=== PATIENT | female | born 1995 | race Caucasian/White ===

== ENCOUNTER 2018-01-29 19:45 | Emergency (ER) | payer OTHER, MEDICAID, SELFPAY ==
--- NOTE | 2018-01-29 19:48 | ED_ITS ---
HPI - Extremity Injury (Upper) <Sarah Harrison PA-C - Last Filed: 01/29/18 21:09> General Chief Complaint: Extremity Injury, Upper Stated Complaint: RIGHT WRIST INJURY Time Seen by Provider: 01/29/18 19:47 Source: patient Mode of arrival: ambulatory Limitations: no limitations History of Present Illness HPI narrative: This healthy 22-year-old comes in due to right wrist pain and swelling. She states that it got slammed in a heavy car console last night. She denies any cuts, no metal pieces however this was bruised, swollen and painful today. 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 It is not weak, but hard to move the wrist sideways and after working for while she noted some tingling in the pinky and ring fingers. She denies any pain in the hand or up into the forearm. She denies any other injuries or problems today. She denies any possibility of stating she practices safe sex and has menses currently. Related Data Home Medications Medication Instructions Recorded Confirmed No Known Home Medications 01/29/18 01/29/18 Allergies Allergy/AdvReac Type Severity Reaction Status Date / Time No Known Drug Allergies Allergy Verified 01/29/18 19:56 Review of Systems <NICCI Catherine Last Filed: 01/29/18 21:09> Review of Systems All systems reviewed & are unremarkable except as noted in HPI and below Exam <Sarah Harrison PA-C - Last Filed: 01/29/18 21:09> Narrative Exam Narrative: GENERAL APPEARANCE: Patient sitting comfortably, in no distress. LUNGS: Clear to auscultation bilaterally. HEART: Rate and rhythm regular without murmur, normal S1 and S2, no S3 or S4. MUSCULOSKELETAL: Moderate right medial wrist effusion. The medial wrist is tender to touch throughout. There is no tenderness or effusion over the right hand, fingers, forearm or elbow. She has full range of motion throughout all of these areas except slight reduction with medial and lateral deviation of the wrist. Right hand stock sorter strength is intact NEUROVASCULAR: Right hand fingers are warm and pink, 2+ radial and ulnar pulses , sensation grossly intact DERM: Patches of ecchymoses noted along the medial border of the right wrist MDM - Extremity Injury (Upper) <Sarah Harrison PA-C - Last Filed: 01/29/18 21:09> Imaging Data extremity: Radiologist's impression: View Report History Print [address] [address] XRay Report Signed Patient: Jojo Avalos MR#: [id number] : 1995 Acct:[id number] Age/Sex: 22 / F Date of Service: 01/29/18 Loc: ED Accession Number: [id number] Procedure: XR wrist RT min 3V Ordering Provider: Sarah Harrison P.A-C PROCEDURE: XR WRIST RT MIN 3V INDICATIONS: contusion, pain, swelling(medial) TECHNIQUE: 3 views of the wrist were acquired. COMPARISON: [facility], , WRIST MINIMUM 3 VIEWS RIGHT, 11/24/2007, 20:17. FINDINGS: Bones: No fractures or dislocations. No suspicious bony lesions. Scaphoid view: Not requested Soft tissues: No suspicious soft tissue calcifications. IMPRESSION: No fracture. No osseous lesion. If there are persistent symptoms or clinical suspicion for pathology, then repeat radiographs or advanced imaging (CT, MRI or bone scan) should be considered for further evaluation. Dictated by: Flores Posey MD, PhD on 01/29/2018 at 20:18 Approved by: Flores Posey MD, PhD on 01/29/2018 at 20:18 Discharge Plan Departure Patient Disposition: Home, Self-Care Clinical Impression: Muscle strain of right wrist, Contusion of right wrist Discharge Date/Time: 01/29/18 20:40 Interventions: ED Discharge Assessment Last Done: 01/29/18 20:44 Instructions: DI for Wrist Sprain Activity Restrictions/Additional Instructions: Return if you have acutely worsening symptoms, and as we talked about this may need repeat x-rays if not better in about a week. You should wear the wrist splint we have given you 10/04. Use ibuprofen every 8 hr or Aleve every 12 hr for pain and swelling. Avoid repetitive movement with your wrist (you should do light duty at work until this is better close). Typically sprains and strains can take a month or 2 to fully resolve. Prescriptions: No Action No Known Home Medications RF: 0 Stand Alone Forms: Work/School Restrictions <Adriane Cárdenas DO - Last Filed: 01/29/18 23:14> Cosign ED Attending Cosignature Attestation: I was immediately available in the department for consultation. Documentation has been reviewed. I agree with assessment and plan.
[2018-01-29 19:51] VITALS: BP 129/84; PULSE 68; RESP 16; TEMP 36.3; O2SAT 100; BMI 20.7
--- NOTE | 2018-01-29 19:59 | DI.RAD.S_ITS ---
PROCEDURE: XR WRIST RT MIN 3V INDICATIONS: contusion, pain, swelling(medial) TECHNIQUE: 3 views of the wrist were acquired. COMPARISON: [facility], , WRIST MINIMUM 3 VIEWS RIGHT, 11/24/2007, 20:17. FINDINGS: Bones: No fractures or dislocations. No suspicious bony lesions. Scaphoid view: Not requested Soft tissues: No suspicious soft tissue calcifications. IMPRESSION: No fracture. No osseous lesion. If there are persistent symptoms or clinical suspicion for pathology, then repeat radiographs or advanced imaging (CT, MRI or bone scan) should be considered for further evaluation. Dictated by: Flores Posey MD, PhD on 01/29/2018 at 20:18 Approved by: Flores Posey MD, PhD on 01/29/2018 at 20:18
== END 2018-01-29 20:40 | disposition home or self-care (01) ==
PROVIDERS: Emergency Provider Internal Medicine
DX: S66.911A Strain of unspecified muscle, fascia and tendon at wrist and hand level, right hand, initial encounter (principal); S60.211A Contusion of right wrist, initial encounter; W23.0XXA Caught, crushed, jammed, or pinched between moving objects, initial encounter
CPT/HCPCS: 29260; 73110; 99282; 99283

== ENCOUNTER 2018-10-30 14:22 | Emergency (ER) | payer OTHER, SELFPAY ==
[2018-10-30 14:27] VITALS: BP 135/89; PULSE 116; RESP 16; TEMP 37.4; O2SAT 99; BMI 21.2
--- NOTE | 2018-10-30 14:29 | DI.RAD.S_ITS ---
PROCEDURE: XR ELBOW LT MIN 3V INDICATIONS: slipped and fell, now with left elbow pain TECHNIQUE: 3 views of the elbow were acquired. COMPARISON: None. FINDINGS: Bones: No fractures or dislocations. No suspicious bony lesions. Soft tissues: No elbow joint effusion. No suspicious soft tissue calcifications. IMPRESSION: No fracture or dislocation. If clinical symptoms persist, a repeat examination in 7-10 days, or advanced imaging such as CT or MRI is suggested for further evaluation. Dictated by: Yasmine Reece M.D. on 10/30/2018 at 14:51 Approved by: Yasmine Reece M.D. on 10/30/2018 at 14:52
--- NOTE | 2018-10-30 14:55 | ED.UPPEXIN ---
HPI - Extremity Injury (Upper) <TARAH Fernández - Last Filed: 10/30/18 21:54> General Chief Complaint: Extremity Injury, Upper Stated Complaint: LEFT ARM INJURY Time Seen by Provider: 10/30/18 14:28 Source: patient Mode of arrival: ambulatory Limitations: no limitations History of Present Illness HPI narrative: 23-year-old healthy female that is a nonsmoker here for complaint of pain into her left elbow after ground level fall last night. She states she slipped while on a step with her arm in the guard rail or when she slipped. She denies any direct trauma to the elbow itself. She reports increased pain with motion of the left elbow. She denies other injuries. No head injury no loss of consciousness. She is ambulatory into the emergency room. MD complaint: injury to: left and elbow Related Data Home Medications Medication Instructions Recorded Confirmed No Known Home Medications 01/29/18 07/12/18 Allergies Allergy/AdvReac Type Severity Reaction Status Date / Time No Known Drug Allergies Allergy Verified 07/12/18 16:20 Review of Systems <TARAH Fernández - Last Filed: 10/30/18 21:54> Constitutional Denies chills, Denies fever(s), Denies lethargy and Denies weakness Eyes Denies change in vision, Denies eye discharge, Denies irritation and Denies loss of vision ENT Ears, Nose, Mouth, and Throat: Denies change in voice, Denies neck pain and Denies sore throat Cardiovascular Denies chest pain, Denies irregular heart rhythm, Denies lightheadedness, Denies palpitations, Denies dyspnea, Denies dyspnea on exertion and Denies orthopnea Respiratory Denies cough, Denies dyspnea, Denies dyspnea on exertion and Denies wheezing Gastrointestinal Gastrointestinal: Denies abdominal pain, Denies change in bowel habits, Denies diarrhea, Denies nausea and Denies vomiting Genitourinary Denies hematuria, Denies flank pain, Denies urinary incontinence and Denies urinary urgency Musculoskeletal Denies neck pain Comments: Left elbow pain Integumentary/Breasts Denies pruritus, Denies erythema, Denies rash and Denies wounds Neurologic Denies confusion, Denies loss of vision and Denies weakness Psychiatric Denies anxiety, Denies confusion, Denies depression, Denies homicidal ideation and Denies suicidal ideation Endocrine Denies palpitations Hematologic/Lymphatic Denies easy bruising Allergic/Immunologic Denies wheezing PFSH <TARAH Fernández - Last Filed: 10/30/18 21:54> Medical History Healthy adult (Chronic) Social History Smoking Status: Never smoker substance use type: does not use Social History Smoking Status: Never smoker substance use type: does not use Exam <TARAH Fernández - Last Filed: 10/30/18 21:54> Initial Vital Signs Initial Vital Signs: Vital Signs Temperature 99.3 F 10/30/18 14:27 Pulse Rate 116 H 10/30/18 14:27 Respiratory Rate 16 10/30/18 14:27 Blood Pressure 135/89 10/30/18 14:27 Pulse Oximetry 99 10/30/18 14:27 Const General: cooperative and well developed Nutritional Appearance: well nourished Orientation: alert, awake, oriented x3 and not confused [facility] Mouth: oral mucosae normal and moist mucous membranes Eyes Conjunctivae: conjunctivae normal Sclera: sclerae normal Pupils: PERRL EOM: EOM intact bilaterally Resp Effort & Inspection: normal respiratory effort, able to speak in complete sentences, no respiratory distress and no use of accessory muscles Auscultation: clear to auscultation bilaterally, no rales, no rhonchi and no wheezes Cardio Rate: regular rate Rhythm: regular rhythm Heart Sounds: no click, no gallops, no murmurs and no rubs Pulses: normal peripheral pulses Skin General: no rashes or lesions noted, No jaundice and No petechiae Neuro General: alert, oriented x3, gait normal and no focal motor deficits Speech: speech normal Extrem Other: Left elbow with a slight abrasion to cubital fossa. No swelling no ecchymosis. No deformities. Patient with full range of motion to the left elbow. Distal sensation is intact. Distal pulses are intact. Distal range of motion is intact. <Yaya Rosas DO - Last Filed: 10/31/18 18:24> Initial Vital Signs Initial Vital Signs: Vital Signs Temperature 99.3 F 10/30/18 14:27 Pulse Rate 116 H 10/30/18 14:27 Respiratory Rate 16 10/30/18 14:27 Blood Pressure 135/89 10/30/18 14:27 Pulse Oximetry 99 10/30/18 14:27 Course <TARAH Fernández - Last Filed: 10/30/18 21:54> Orders Ordered: ED Orders 10/30/18 14:29 XR elbow LT min 3V Stat Vital Signs - 8 hr 10/30/18 14:27 10/30/18 15:20 Temperature 99.3 F Pulse Rate 116 H 78 Respiratory Rate 16 19 Blood Pressure 135/89 Blood Pressure [Right Arm] 113/76 Pulse Oximetry 99 100 <Yaya Rosas DO - Last Filed: 10/31/18 18:24> Orders Ordered: ED Orders 10/30/18 14:29 XR elbow LT min 3V Stat Vital Signs - 8 hr 10/30/18 14:27 10/30/18 15:20 Temperature 99.3 F Pulse Rate 116 H 78 Respiratory Rate 16 19 Blood Pressure 135/89 Blood Pressure [Right Arm] 113/76 Pulse Oximetry 99 100 MDM - Extremity Injury (Upper) <TARAH Fernández - Last Filed: 10/30/18 21:54> Imaging Data Left elbow : Radiologist's impression: [place] [address] XRay Report Signed Patient: Jojo Avalos [facility]#: [id number] : 1995Acct:[id number] Age/Sex: 23 / FDate of Service: 10/30/18 Loc: ED Accession Number: [id number] Procedure: XR elbow LT min 3V Ordering Provider: Jamie Evans PROCEDURE: XR ELBOW LT MIN 3V INDICATIONS: slipped and fell, now with left elbow pain TECHNIQUE: 3 views of the elbow were acquired. COMPARISON: None. FINDINGS: Bones: No fractures or dislocations. No suspicious bony lesions. Soft tissues: No elbow joint effusion. No suspicious soft tissue calcifications. IMPRESSION: No fracture or dislocation. If clinical symptoms persist, a repeat examination in 7-10 days, or advanced imaging such as CT or MRI is suggested for further evaluation. Dictated by: Yasmine Reece M.D. on 10/30/2018 at 14:51 Approved by: Yasmine Reece M.D. on 10/30/2018 at 14:52 [facility] Narrative Medical decision making narrative: X-ray the left elbow was obtained and was negative for any acute fractures or dislocations. Signs and symptoms presents as sprain to the left elbow. She is placed in a sling for comfort and support. [id number] Tylenol or Motrin as needed for any discomfort. Ice and elevation help with any swelling. Follow up with primary care provider next week for re-evaluation. Recommend MRI if continued pain which does not resolve. For any worsening symptoms return emergency room. Discharge Plan Departure Patient Disposition: Home Clinical Impression: Sprain of elbow, left Qualifiers: Encounter type: initial encounter Qualified Code(s): S53.402A - Unspecified sprain of left elbow, initial encounter Discharge Date/Time: 10/30/18 15:47 Interventions: ED Discharge Assessment Last Done: 10/30/18 15:46 Instructions: DI for Elbow Sprain Activity Restrictions/Additional Instructions: X-ray the left elbow was obtained and was negative for any acute fractures or dislocations. Signs and symptoms presents as sprain to the left elbow. You have been placed in a sling for comfort and support. [id number]-[id number] Tylenol or Motrin as needed for any discomfort. Ice and elevation help with any swelling. Follow up with primary care provider next week for re-evaluation. Recommend MRI if continued pain which does not resolve. For any worsening symptoms return emergency room. Prescriptions: No Action No Known Home Medications RF: 0 Referrals: [facility] [Provider Group] <Yaya Rosas DO - Last Filed: 10/31/18 18:24> Cosign ED Attending Giuseppe Attestation: I was immediately available in the department for consultation. Documentation has been reviewed. I agree with assessment and plan.
--- NOTE | 2018-10-30 15:05 | ED_ITS ---
HPI - Extremity Injury (Upper) <TARAH Fernández - Last Filed: 10/30/18 21:54> General Chief Complaint: Extremity Injury, Upper Stated Complaint: LEFT ARM INJURY Time Seen by Provider: 10/30/18 14:28 Source: patient Mode of arrival: ambulatory Limitations: no limitations History of Present Illness HPI narrative: 23-year-old healthy female that is a nonsmoker here for complaint of pain into her left elbow after ground level fall last night. She states she slipped while on a step with her arm in the guard rail or when she slipped. She denies any direct trauma to the elbow itself. She reports increased pain with motion of the left elbow. She denies other injuries. No head injury no loss of consciousness. She is ambulatory into the emergency room. MD complaint: injury to: left and elbow Related Data Home Medications Medication Instructions Recorded Confirmed No Known Home Medications 01/29/18 07/12/18 Allergies Allergy/AdvReac Type Severity Reaction Status Date / Time No Known Drug Allergies Allergy Verified 07/12/18 16:20 Review of Systems <TARAH Fernández - Last Filed: 10/30/18 21:54> Constitutional Denies chills, Denies fever(s), Denies lethargy and Denies weakness Eyes Denies change in vision, Denies eye discharge, Denies irritation and Denies loss of vision ENT Ears, Nose, Mouth, and Throat: Denies change in voice, Denies neck pain and Denies sore throat Cardiovascular Denies chest pain, Denies irregular heart rhythm, Denies lightheadedness, Denies palpitations, Denies dyspnea, Denies dyspnea on exertion and Denies orthopnea Respiratory Denies cough, Denies dyspnea, Denies dyspnea on exertion and Denies wheezing Gastrointestinal Gastrointestinal: Denies abdominal pain, Denies change in bowel habits, Denies diarrhea, Denies nausea and Denies vomiting Genitourinary Denies hematuria, Denies flank pain, Denies urinary incontinence and Denies urinary urgency Musculoskeletal Denies neck pain Comments: Left elbow pain Integumentary/Breasts Denies pruritus, Denies erythema, Denies rash and Denies wounds Neurologic Denies confusion, Denies loss of vision and Denies weakness Psychiatric Denies anxiety, Denies confusion, Denies depression, Denies homicidal ideation and Denies suicidal ideation Endocrine Denies palpitations Hematologic/Lymphatic Denies easy bruising Allergic/Immunologic Denies wheezing PFSH <TARAH Fernández - Last Filed: 10/30/18 21:54> Medical History Healthy adult (Chronic) Social History Smoking Status: Never smoker substance use type: does not use Social History Smoking Status: Never smoker substance use type: does not use Exam <TARAH Fernández - Last Filed: 10/30/18 21:54> Initial Vital Signs Initial Vital Signs: Vital Signs Temperature 99.3 F 10/30/18 14:27 Pulse Rate 116 H 10/30/18 14:27 Respiratory Rate 16 10/30/18 14:27 Blood Pressure 135/89 10/30/18 14:27 Pulse Oximetry 99 10/30/18 14:27 Const General: cooperative and well developed Nutritional Appearance: well nourished Orientation: alert, awake, oriented x3 and not confused [facility] Mouth: oral mucosae normal and moist mucous membranes Eyes Conjunctivae: conjunctivae normal Sclera: sclerae normal Pupils: PERRL EOM: EOM intact bilaterally Resp Effort & Inspection: normal respiratory effort, able to speak in complete sentences, no respiratory distress and no use of accessory muscles Auscultation: clear to auscultation bilaterally, no rales, no rhonchi and no wheezes Cardio Rate: regular rate Rhythm: regular rhythm Heart Sounds: no click, no gallops, no murmurs and no rubs Pulses: normal peripheral pulses Skin General: no rashes or lesions noted, No jaundice and No petechiae Neuro General: alert, oriented x3, gait normal and no focal motor deficits Speech: speech normal Extrem Other: Left elbow with a slight abrasion to cubital fossa. No swelling no ecchymosis. No deformities. Patient with full range of motion to the left elbow. Distal sensation is intact. Distal pulses are intact. Distal range of motion is intact. <Yaya Rosas DO - Last Filed: 10/31/18 18:24> Initial Vital Signs Initial Vital Signs: Vital Signs Temperature 99.3 F 10/30/18 14:27 Pulse Rate 116 H 10/30/18 14:27 Respiratory Rate 16 10/30/18 14:27 Blood Pressure 135/89 10/30/18 14:27 Pulse Oximetry 99 10/30/18 14:27 Course <TARAH Fernández - Last Filed: 10/30/18 21:54> Orders Ordered: ED Orders 10/30/18 14:29 XR elbow LT min 3V Stat Vital Signs - 8 hr 10/30/18 14:27 10/30/18 15:20 Temperature 99.3 F Pulse Rate 116 H 78 Respiratory Rate 16 19 Blood Pressure 135/89 Blood Pressure [Right Arm] 113/76 Pulse Oximetry 99 100 <Yaya Rosas DO - Last Filed: 10/31/18 18:24> Orders Ordered: ED Orders 10/30/18 14:29 XR elbow LT min 3V Stat Vital Signs - 8 hr 10/30/18 14:27 10/30/18 15:20 Temperature 99.3 F Pulse Rate 116 H 78 Respiratory Rate 16 19 Blood Pressure 135/89 Blood Pressure [Right Arm] 113/76 Pulse Oximetry 99 100 MDM - Extremity Injury (Upper) <TARAH Fernández - Last Filed: 10/30/18 21:54> Imaging Data Left elbow : Radiologist's impression: [place] [address] XRay Report Signed Patient: Jojo Avalos [facility]#: [id number] : 1995Acct:[id number] Age/Sex: 23 / FDate of Service: 10/30/18 Loc: ED Accession Number: [id number] Procedure: XR elbow LT min 3V Ordering Provider: Jamie Evans PROCEDURE: XR ELBOW LT MIN 3V INDICATIONS: slipped and fell, now with left elbow pain TECHNIQUE: 3 views of the elbow were acquired. COMPARISON: None. FINDINGS: Bones: No fractures or dislocations. No suspicious bony lesions. Soft tissues: No elbow joint effusion. No suspicious soft tissue calcifications. IMPRESSION: No fracture or dislocation. If clinical symptoms persist, a repeat examination in 7-10 days, or advanced imaging such as CT or MRI is suggested for further evaluation. Dictated by: Yasmine Reece M.D. on 10/30/2018 at 14:51 Approved by: Yasmine Reece M.D. on 10/30/2018 at 14:52 [facility] Narrative Medical decision making narrative: X-ray the left elbow was obtained and was n egative for any acute fractures or dislocations. Signs and symptoms presents as sprain to the left elbow. She is placed in a sling for comfort and support. Lihp-azk-tulvzsn Tylenol or Motrin as needed for any discomfort. Ice and elevation help with any swelling. Follow up with primary care provider next week for re-evaluation. Recommend MRI if continued pain which does not resolve. For any worsening symptoms return emergency room. Discharge Plan Departure Patient Disposition: Home Clinical Impression: Sprain of elbow, left Qualifiers: Encounter type: initial encounter Qualified Code(s): S53.402A - Unspecified sprain of left elbow, initial encounter Discharge Date/Time: 10/30/18 15:47 Interventions: ED Discharge Assessment Last Done: 10/30/18 15:46 Instructions: DI for Elbow Sprain Activity Restrictions/Additional Instructions: X-ray the left elbow was obtained and was negative for any acute fractures or dislocations. Signs and symptoms presents as sprain to the left elbow. You have been placed in a sling for comfort and support. Cfgg-evh-[id number] Tylenol or Motrin as needed for any discomfort. Ice and elevation help with any swelling. Follow up with primary care provider next week for re-evaluation. Recommend MRI if continued pain which does not resolve. For any worsening symptoms return emergency room. Prescriptions: No Action No Known Home Medications RF: 0 Referrals: [facility] [Provider Group] <Yaya Rosas DO - Last Filed: 10/31/18 18:24> Cosign ED Attending Giuseppe Attestation: I was immediately available in the department for consultation. Documentation has been reviewed. I agree with assessment and plan.
[2018-10-30 15:20] VITALS: BP 113/76; PULSE 78; RESP 19; O2SAT 100
== END 2018-10-30 15:47 | disposition home or self-care (01) ==
PROVIDERS: Emergency Provider Nurse Practitioner Family
DX: S53.402A Unspecified sprain of left elbow, initial encounter (principal); W18.43XA Slipping, tripping and stumbling without falling due to stepping from one level to another, initial encounter
CPT/HCPCS: 73080; 99282; 99283

== ENCOUNTER → 2019-09-16 09:46 | Outpatient (CLI) | payer OTHER, SELFPAY ==
[2019-09-16 10:50] LABS: Add Manual Diff / Slide Review NO; Basophils Absolute Auto 0 /uL (0-100); Basophils Percent Auto 0.6 % (0-2); Eosinophils Absolute Auto 100 /uL (0-450); Eosinophils Percent Auto 1.5 % (2-4); Hematocrit 39.1 % (36-46); Hemoglobin 13.6 g/dL (12.0-16.0); Lymphocytes Absolute Auto 1700 /uL (1100-4500); Lymphocytes Percent Auto 37.2 % (25-40); Mean Corpuscular HGB Conc 34.8 % (30-36); Mean Corpuscular Hemoglobin 30.5 PG (26-34); Mean Corpuscular Volume 87.5 fL (80-100); Monocytes Absolute Auto 300 /uL (0-900); Monocytes Percent Auto 7.8 % (3-14); Neutrophils Absolute Auto 2400 /uL (1500-7000); Neutrophils Percent Auto 52.9 % (50-75); Platelet Count 283 X10^3/uL (150-400); Red Blood Cell Count 4.47 X10^6/uL (4.0-5.2); Red Cell Distribution Width 12.2 % (11.6-14.8); White Blood Cell Count 4.5 X10^3/uL (4.5-11.0)
[2019-09-16 11:44] LABS: Alanine Aminotransferase 15 IU/L (<35); Albumin 5.2 g/dL (3.5-5.0); Albumin Globulin Ratio 1.9 (1.0-2.8); Alkaline Phosphatase 50 U/L (38-126); Aspartate Aminotransferase 24 IU/L (14-36); Bilirubin Total 0.4 mg/dL (0.2-1.3); Blood Urea Nitrogen 15 mg/dL (7-17); Calcium 9.8 mg/dL (8.4-10.2); Carbon Dioxide 26 mmol/L (22-32); Chloride 104 mmol/L (98-107); Estimated Glomerular Filt Rate > 60.0 mL/min (>60); Globulin 2.8 g/dL (1.7-4.1); Glucose 77 mg/dL (70-100); HEMOLYSIS < 15 (0-50); Potassium 3.9 mmol/L (3.4-5.1); Sodium 142 mmol/L (137-145)
[2019-09-16 13:35] LABS: TSH w/ Reflex to FT4 2.37 uIU/mL (0.47-4.68)
== END ==
PROVIDERS: PCP Family Medicine; Visit Provider Family Medicine
DX: L65.9 Nonscarring hair loss, unspecified (principal); R53.83 Other fatigue
CPT/HCPCS: 36415; 80053; 84443; 85025

== ENCOUNTER → 2020-04-13 09:32 | Outpatient (CLI) | payer OTHER, MEDICAID, SELFPAY ==
--- NOTE | 2020-04-13 09:33 | DI.US.S_ITS ---
PROCEDURE: US OB <= 14 WEEKS FETUS INDICATIONS: Initial US for Dating and Viability please OUTSIDE/PRIOR DATING DATA: Last menstrual period (LMP): 02/11/2020. LMP-based estimated date of delivery (JOSÉ MIGUEL): 11/17/2020 . First dating scan (date and location): 04/13/2020 . Estimated date of delivery (JOSÉ MIGUEL) from first dating scan: 11/16/2020 . TECHNIQUE: Real-time scanning was performed of the fetus and maternal pelvic organs, with image documentation. Endovaginal scanning was also performed to better visualize the fetus and maternal ovaries. COMPARISON: None. FINDINGS: Embryo: [place]-rump length measured 2.4 cm corresponding to 9 weeks 0 days. Heart rate measures 189 beats per minute. Measurement variability in dating: +/- 4 weeks by LMP, +/- 7 days by mean sac diameter (use before 6 weeks gestation if crown-rump length not able to be measured), +/- 5 days by crown-rump length (up to 8 weeks 6 days gestation), +/- 7 days by crown-rump length (up to 13 weeks 6 days gestation). Maternal organs: Ovaries within normal limits, with right corpus luteal cyst Subcentimeter myometrial cyst noted.. Limited images through the kidneys demonstrate no hydronephrosis. IMPRESSION: Single living 9 week 0 day intrauterine . Dictated by: Elvis Wall [facility] Interpreted: Melecio Herndon MD on 04/13/2020 at 16:04 Approved by: Melecio Herndon M.D. on 04/13/2020 at 16:51
== END ==
PROVIDERS: PCP Family Medicine; Referring Provider Family Medicine; Visit Provider Family Medicine
DX: Z34.01 Encounter for supervision of normal first pregnancy, first trimester (principal); Z3A.09 9 weeks gestation of pregnancy
CPT/HCPCS: 76801; 76817

== ENCOUNTER → 2020-04-24 10:10 | Outpatient (CLI) | payer OTHER, MEDICAID, SELFPAY ==
[2020-04-24 10:44] LABS: Add Manual Diff / Slide Review NO; Basophils Absolute Auto 0 /uL (0-100); Basophils Percent Auto 0.4 % (0-2); Eosinophils Absolute Auto 100 /uL (0-450); Hematocrit 38.6 % (36-46); Hemoglobin 13.5 g/dL (12.0-16.0); Lymphocytes Absolute Auto 1300 /uL (1100-4500); Lymphocytes Percent Auto 24.8 % (25-40); Mean Corpuscular HGB Conc 34.9 % (30-36); Mean Corpuscular Hemoglobin 30.4 PG (26-34); Mean Corpuscular Volume 87.2 fL (80-100); Monocytes Absolute Auto 300 /uL (0-900); Monocytes Percent Auto 6.5 % (3-14); Neutrophils Absolute Auto 3500 /uL (1500-7000); Neutrophils Percent Auto 67.3 % (50-75); Platelet Count 264 X10^3/uL (150-400); Red Blood Cell Count 4.43 X10^6/uL (4.0-5.2); Red Cell Distribution Width 12.1 % (11.6-14.8); White Blood Cell Count 5.2 X10^3/uL (4.5-11.0)
[2020-04-24 11:14] LABS: Appearance Urine UA CLEAR; Bilirubin Urine UA NEGATIVE (NEGATIVE); Color Urine UA YELLOW; Glucose Urine UA NEGATIVE (Negative); Ketones Urine UA NEGATIVE (NEGATIVE); Leukocyte Esterase Urine UA NEGATIVE (NEGATIVE); Nitrite Urine UA NEGATIVE (Negative); Occult Blood Urine UA NEGATIVE (Negative); Protein Urine UA NEGATIVE (Negative); Specific Gravity Urine UA <=1.005 (1.000-1.035); Urobilinogen Urine UA 0.2 E.U./dL (0.2)
[2020-04-25 04:40] LABS: RPR Screen Non Reactive (Non Reactive)
[2020-04-25 06:36] LABS: Varicella IgG Antibody 321 index (Immune >165)
[2020-04-27 15:25] LABS: Hepatitis B Surface Antigen NEGATIVE s/c (NEGATIVE)
[2020-04-27 15:42] LABS: HIV 1 & 2 Ab/Ag 4th Gen Combo NEGATIVE (NEGATIVE); Hep C Virus Ab w/Reflex Quant NEGATIVE s/c (NEGATIVE)
== END ==
PROVIDERS: PCP Family Medicine; Referring Provider Family Medicine; Visit Provider Family Medicine
DX: Z34.01 Encounter for supervision of normal first pregnancy, first trimester (principal)
CPT/HCPCS: 36415; 80055; 81003; 86787; 86803; 86850; 86900; 86901; 87086; 87389

== ENCOUNTER → 2020-05-23 10:39 | Outpatient (CLI) | payer OTHER, MEDICAID, SELFPAY ==
[2020-05-23 10:50] LABS: Bacteria Urine None Seen
[2020-05-23 11:01] LABS: Appearance Urine UA CLEAR; Bilirubin Urine UA NEGATIVE (NEGATIVE); Color Urine UA YELLOW; Glucose Urine UA NEGATIVE (Negative); Ketones Urine UA NEGATIVE (NEGATIVE); Leukocyte Esterase Urine UA NEGATIVE (NEGATIVE); Nitrite Urine UA NEGATIVE (Negative); Occult Blood Urine UA NEGATIVE (Negative); Protein Urine UA NEGATIVE (Negative); Specific Gravity Urine UA 1.015 (1.000-1.035); Urobilinogen Urine UA 0.2 E.U./dL (0.2)
[2020-05-23 12:00] LABS: RBC Urine 0-1/HPF (0-5/HPF); Squamous Epithelial Cell Urine 5-10 /HPF (0-5/HPF); WBC Urine 0-1/HPF (0-5/HPF)
[2020-05-23 12:01] LABS: Culture Indicated Urine Cult Not Indicated; Other Crystals Urine 3+ Amorphous
== END ==
PROVIDERS: PCP Family Medicine; Referring Provider Family Medicine; Visit Provider Family Medicine
DX: R30.0 Dysuria (principal)
CPT/HCPCS: 81001

== ENCOUNTER → 2020-06-22 11:32 | Outpatient (CLI) | payer OTHER, MEDICAID, SELFPAY ==
[2020-06-25 20:55] LABS: AFP, Serum 66.6 ng/mL (.); Calc Gestational Age Ultrasound (.); Estriol, Free 2.07 ng/mL (.); Inhibin A, Dimeric 167.17 pg/mL (.); Maternal Ethnicity Caucasian (.); Maternal Weight 158 lbs (.); Number of Fetuses No (.); OSBR Risk 1 IN 3501 (.); Results Report (.); Test Results *Screen Negative* (.); hCG, MoM 0.73 (.); hCG, Serum 18191 mIU/mL (.)
== END ==
PROVIDERS: PCP Family Medicine; Referring Provider Family Medicine; Visit Provider Family Medicine
DX: Z34.90 Encounter for supervision of normal pregnancy, unspecified, unspecified trimester (principal); Z3A.18 18 weeks gestation of pregnancy
CPT/HCPCS: 36415; 82105; 82677; 84702; 86336

== ENCOUNTER → 2020-07-03 14:14 | Outpatient (CLI) | payer OTHER, MEDICAID, SELFPAY ==
--- NOTE | 2020-07-03 14:15 | DI.US.S_ITS ---
PROCEDURE: US OB >= 14 WEEKS FETUS INDICATIONS: ANATOMY SCAN OUTSIDE/PRIOR DATING DATA: Last menstrual period (LMP): 02/11/20 LMP-based estimated date of delivery (JOSÉ MIGUEL): 11/17/20 . First dating scan (date and location): 04/13/20, [facility] . Estimated date of delivery (JOSÉ MIGUEL) from first dating scan: 11/16/20 . TECHNIQUE: Real-time scanning was performed of the fetus, with image documentation and biometric measurements. COMPARISON: None. FINDINGS: General: A single living intrauterine gestation is present. Presentation: Vertex. Placenta: Placental position is anterior , without previa. Amniotic fluid index: 14.6 cm, normal range is 5-24 cm. heart rate: 128 beats per minute. Maternal cervical canal: 5.7 cm long. Normal lower limit is 2.5 cm. biometrics: Biparietal diameter: 5.1 cm, 21 weeks 4 days Head circumference: 18.6 cm, 21 weeks 0 days Abdominal circumference: 16.2 cm, 21 weeks 2 days Femur length: 3.5 cm, 21 weeks 1 day Estimated gestational age from initial scan: 20 weeks 4 days Composite gestational age from present scan: 21 weeks 2 days Estimated weight and percentile: 405 g, 78 percentile Measurement variability for biometric dating: +/- 7 days from 14 weeks to 15 weeks 6 days gestation, +/- 10 days from 16 weeks to 21 weeks 6 days gestation, +/- 2 weeks from 22 weeks to 27 weeks 6 days gestation, +/- 3 weeks for 28 weeks gestation or later. weight reference: 4500 g or EFW >90/95% is considered macrosomia or large for gestational age. EFW <10% is small for gestational age. EFW 5% or less is considered intra-uterine growth restriction. Anatomic survey: Neuro: Ventricles are non-dilated at less than 10 mm. Cisterna magna is normal at 3-11 mm. Cerebellum is normal in size and morphology. Nuchal skin fold: Normal at less than 6 mm between 14-21 weeks gestational age. Face: Nose and lips, facial profile are normal. Spine: No evidence for spina bifida. Heart: 4-chambered heart is present, with normal ventricular outflow tracts. Diaphragm: Diaphragm is intact. Stomach: Left-sided stomach is present. Kidneys: No hydronephrosis. Normal is less than 5 mm in 2nd trimester, less than 7 mm in 3rd trimester. Cord: 3-vessel cord has orthotopic insertion. Bladder: Normal in size. Extremities: All 4 extremities identified. IMPRESSION: 1. Living 2nd trimester intrauterine . Current ultrasound age is 4 days greater than established clinical age based on initial ultrasound. 2. Normal 2nd trimester anatomy scan. Dictated by: Abdiel Mcclelland M.D. on 07/03/2020 at 18:14 Approved by: Abdiel Mcclelland M.D. on 07/03/2020 at 18:19
== END ==
PROVIDERS: PCP Family Medicine; Referring Provider Family Medicine; Visit Provider Family Medicine
DX: Z36.89 Encounter for other specified antenatal screening (principal); Z3A.21 21 weeks gestation of pregnancy
CPT/HCPCS: 76811

== ENCOUNTER → 2020-08-28 08:40 | Outpatient (CLI) | payer OTHER, SELFPAY ==
[2020-08-28 10:34] LABS: Hematocrit 36.9 % (36-46); Hemoglobin 12.6 g/dL (12.0-16.0)
[2020-08-28 11:08] LABS: GTT (PREG) 1 Hour PP 50gm Dose 89 mg/dL (76-139)
== END ==
PROVIDERS: PCP Family Medicine; Referring Provider Family Medicine; Visit Provider Family Medicine
DX: Z34.90 Encounter for supervision of normal pregnancy, unspecified, unspecified trimester (principal); Z3A.26 26 weeks gestation of pregnancy
CPT/HCPCS: 36415; 82950; 85014; 85018

== ENCOUNTER → 2020-10-26 15:15 | Outpatient (CLI) | payer OTHER, MEDICAID, SELFPAY ==
[2020-10-27 13:49] LABS: Strep Grp B PCR NEG for Grp B Strep
== END ==
PROVIDERS: PCP Family Medicine; Visit Provider Family Medicine
DX: Z34.90 Encounter for supervision of normal pregnancy, unspecified, unspecified trimester (principal); Z3A.36 36 weeks gestation of pregnancy
CPT/HCPCS: 87653

== ENCOUNTER 2020-11-12 09:03 | Inpatient (IN) | payer OTHER, MEDICAID, SELFPAY ==
--- NOTE | 2020-11-12 13:01 | P.HPOB_ITS ---
OB HPI Date/Time Date of admission: 11/12/20 Date Patient Seen: 11/12/20 Time Patient Seen: 12:30 History of Present Condition Chief complaint: Observation : 1 Para: 0 Estimated Date of Delivery: 11/17/20 Estimated Gestational Age (weeks): 39w2d Narrative: Jojo Avalos is a 25 year old at 39 weeks and 2 days. Patient reports a contractions began last night around 7:30 p.m. but became much more painful sometime after midnight. Contractions at home have been every 2-4 minutes and getting stronger. She has had some bloody discharge and thought some leaking last night but continued leaking. Reports good movement. History of Present care: good care, initiated at week # (10), number of visits (11) and pounds weight gain (41) Dating criteria: LMP confirmed by 1st trimester US Ultrasounds: normal 1st trimester US and normal mid trimester US Obstetrical complications: none Medical complications: none Preadmission Labs Blood type: A (+) positive -: Antibody screen: negative, GBS status: negative, HBsAG: negative, HIV: negative and RPR/VDLR: negative -: Rubella: immune and Varicella: immune HCT: 36.9 HCAB: negative PAP: Normal Quad screen: Normal Urine: Negative 1 hr GTT: 89 Evaluation Evaluation Baseline heart rate: 130 Variability: Moderate (11-25) monitor accelerations: Present monitor decelerations: Absent Contraction Frequency (minutes): 2 Status: Category l Cervical dilation (cm): 2 Cervical effacement (%): 85 station: 0 PFSH Medical History Allergies (~2000) Chronic back pain (~2011) Family history of breast cancer Foot pain (~2017) Hemorrhoid (~2018) Migraines (~2017) Scoliosis (~1995) Surgical History Anesthesia H/O eye surgery (~1997) Family History Mother Breast cancer Hypertension Anxiety Depression Grandfather Cancer Smoker Grandmother Stroke Smoker Aneurysm Sister Eligio-Danlos disease Depression Grandfather Hypertension Smoker Family estrangement Grandmother Hypertension Hyperlipidemia Mental health problem Father No known health problems Family/Other Breast cancer Social History marital status: unmarried,living together household members: significant other pets and animals: Yes (X 1 dog) education level: high school occupational status: employed ([employer] in [facility] ) current occupational exposures/hazards: No special chavo needs: No sexual history: Currently sexually active Smoking Status: Never smoker second hand exposure: No alcohol intake: former (pre- : very rare) substance use type: does not use and marijuana (pre-) during the past year weight has: remained stable Type(s) of exercise: walking Meds Home Medications and Allergies Home Medications Medication Instructions Recorded Confirmed Type cetirizine 10 mg tablet 10 mg PO DAILY #90 tab 08/26/19 11/12/20 Rx prenat.vits,mavis,[id number] 1 tab PO DAILY 04/20/20 11/12/20 History Allergies Allergy/AdvReac Type Severity Reaction Status Date / Time No Known Drug Allergies Allergy Verified 08/31/20 15:44 Review of Systems Review of Systems ROS: Yes All systems reviewed with the patient and are negative except as otherwise documented Exam Vital Signs (past 8 hours): Temperature 36.1? blood pressure 134/82 heart rate 88 Const General: healthy appearing and comfortable HENMT Head: normal to inspection Ears: hearing grossly normal bilaterally Nose: external nose normal Face and sinus: normal facial exam Mouth: oral mucosae normal Eyes General: appearance normal, both eyes and all related structures Neck Neck: normal visual inspection Resp Effort & Inspection: normal respiratory effort Auscultation: clear to auscultation bilaterally Cardio Rate: regular rate Rhythm: regular rhythm Heart Sounds: no murmurs GI Other: Gravid External Female Exam: normal external appearance Manual OB Exam: dilated 2, effaced (85) and station 0 Presentation: vertex Estimated Weight (lbs): 7 Back/Spine/Pelvis Back: normal to inspection Skin General: no rashes or lesions noted Extrem General: normal to inspection and no pedal edema Assessment and Plan Assessment and Plan Assessment and Plan narrative: 25-year-old at 39 weeks and 2 days in labor with regular contractions and cervical change since presentation to the hospital. Admit to center, CBC and type and screen now, COVID swab now GBS negative, no indication for prophylaxis Patient desires natural childbirth Expectant management
[2020-11-12 13:27] LABS: Add Manual Diff / Slide Review NO; Basophils Absolute Auto 0 /uL (0-100); Basophils Percent Auto 0.3 % (0-2); Eosinophils Absolute Auto 0 /uL (0-450); Eosinophils Percent Auto 0.2 % (2-4); Hematocrit 38.9 % (36-46); Hemoglobin 13.2 g/dL (12.0-16.0); Lymphocytes Absolute Auto 1100 /uL (1100-4500); Lymphocytes Percent Auto 13.1 % (25-40); Mean Corpuscular Hemoglobin 29.8 PG (26-34); Mean Corpuscular Volume 87.7 fL (80-100); Monocytes Absolute Auto 600 /uL (0-900); Monocytes Percent Auto 6.6 % (3-14); Neutrophils Absolute Auto 6900 /uL (1500-7000); Neutrophils Percent Auto 79.8 % (50-75); Platelet Count 245 X10^3/uL (150-400); Red Blood Cell Count 4.44 X10^6/uL (4.0-5.2); White Blood Cell Count 8.7 X10^3/uL (4.5-11.0)
[2020-11-12 14:16] VITALS: BP 134/84
[2020-11-12 15:04] LABS: COVID19 -Nasal RAPID Negative (Negative)
--- NOTE | 2020-11-12 17:12 | PM.OBPNLAB ---
Date/Time Date Patient Seen: 11/12/20 Time Patient Seen: 17:12 Pain Control Pain control: tolerating well Comments: Rates pain with contractions 6-7/10 which is tolerable for her. She has had more bloody show. Pelvic Exam Dilation (cm): 3 Effacement (%): 90 station: 0 Amniotic membrane status: Ruptured (AROM light blood tinged fluid) Contractions Contraction frequency (min): 2 Status status: Category l Heart Rate Baseline: 135 Monitor Accelerations: Present Monitor Decelerations: Absent Monitor Variability: Moderate Assessment and Plan Plan: continuous present management Comments: 25 year old at 39+2 weeks with slow cervical change throughout the day but now becoming more painful. AROM with blood tinged fluid. Continue expectant management. Desires natural childbirth.
[2020-11-12] MEDS: OXYTOCIN 10 UNIT/ML VIAL 20 UNIT (19:51)
--- NOTE | 2020-11-12 20:32 | PM.OBPRVD ---
Labor & Delivery Delivery date: 11/12/20 Intrapartal Events: None Delivery augmentation: rupture of membranes Delivery monitor: external FHT Route of delivery: L&D Laceration Description: Vaginal - 1st Degree and Labial (bilateral second degree labial lacerations) Delivery repair: vicryl Estimated blood loss (mL): 100 Anesthesia Type: None Narrative: BRIEF HISTORY: Patient is a 25-year-old at 39 weeks 2 days who gave on 11/12/20 at 19:44. JOSÉ MIGUEL: 11/17/2020 Hospital problems: 39 weeks of STAGE I: Labor Patient presented in active labor after contractions began at home at 12:30 AM. AROM at 17:07 with blood tinged fluid. FHT were category 1 throughout stage 1 and patient used natural methods only for pain control. She was completely dilated at 19:24. Stage 1 18 hours and 54 minutes. STAGE II: Delivery Spontaneous vaginal delivery of a vigorous male occurred at 19:44 after 20 minutes of pushing. was vertex and PATRICIA. Infant was immediately placed on mother's abdomen. Cord was clamped and cut after several minute delay. Apgars were 9 and 9. Stage 2 duration 20 minutes. STAGE III: Placenta/Cord Placenta delivered at 19:48 after active managment and appeared intact with a three vessel cord. Stage 3 duration 4 minutes. Bilateral second degree labial lacerations were repaired in the usual fashion with good hemostasis. A right first degree vaginal laceration was not repaired. Fundus firm below umbilicus after delivery. EBL: 100 mL. Needle and sponge counts were correct. The vagina was inspected and no items were left in situ. Patient was doing well with JT, her and boyfriend at bedside. Baby 1: Infant gender: Male Presentation: vertex Placenta delivery description: Spontaneous Cord Vessel Description: 3 Vessels score (1 min): 9 score (5 min): 9 Plan for aftercare: Routine care
[2020-11-12] MEDS: IBUPROFEN 600 MG TABLET PO (22:29)
[2020-11-12] MEDS: DERMOPLAST SPRAY 20% 60 ML 1 SPRAY TOP (22:30)
[2020-11-13] MEDS: LANOLIN OINT 7 GM 1 APPLIC TOP (09:58)
[2020-11-13] MEDS: DOCUSATE 100 MG CAPSULE PO (09:59)
[2020-11-13] MEDS: IBUPROFEN 600 MG TABLET PO ×2 (09:59→16:15)
[2020-11-13] MEDS: PRENATAL VIT,CALC/IRON/FOLIC 1 TABLET 1 TAB PO (09:59)
--- NOTE | 2020-11-13 13:19 | P.DS_ITS ---
Discharge Providers Provider Date of admission: 11/12/20 09:03 Discharge Date: 11/13/20 Primary care physician: Jacklyn Purdy DO Consults: 11/13/20 20:33 Consult to [employer] Routine Comment: Discharge provider: Jacklyn Purdy DO Summary Hospital Course Date Patient Seen: 11/13/20 Time Patient Seen: 12:30 Diagnoses: Spontaneous vaginal delivery Hospital Course: Patient is a 25 year old G1 now P1 after uncomplicated on 11/12/20 to a vigorous male . Bilateral labial lacerations were repaired with good hemostasis and a first degree vaginal laceration did not require repair. course was notable for several mildly elevated blood pressures though patient was asymptomatic. CBC was normal and CMP remarkable for mildly elevated AST not meeting criteria for pre-eclampsia. Blood pressures would improve to the normal range without intervention. Vaginal bleeding was moderate and pain well- controlled with ibuprofen. Patient was ambulating, eating, voiding and passing flatus. was going very well. No concerns in the . She and her partner were eager to return home and requested early discharge. Advised patient to monitor her BP at home and call if elevated or if she develops symptoms concerning for pre-eclampsia (headache, vison changes, RUQ, edema). She voiced her understanding. Also advised calling for fevers, severe pain or bleeding through more than a pad an hour. She will follow up in clinic for a BP check when she brings in her on 11/16/20 at 3:30 pm. Peripartum Data Delivery Method: Natural Vaginal Laceration Description: Vaginal - 1st Degree and Labial complications: none [place] 1: Gender: Male Disposition of : home Discharge Diagnosis (1) 39 weeks gestation of : Status: Acute (2) Spontaneous vaginal delivery: Status: Acute Status at Discharge Cognitive/behavioral status at discharge: oriented Functional status at discharge: independent ambulation Overall status at discharge: patient is progressing back to baseline Time Spent with Patient Time attestation: Total time spent providing and/or coordinating discharge services: Time spent: Less than 30 minutes Objective Labs Result Diagrams: 11/13/20 17:25 11/13/20 17:25 Labs: Laboratory Results - last 24 hr 11/12/20 11/12/20 11/12/20 11:26 12:45 12:45 WBC 8.7 RBC 4.44 Hgb 13.2 Hct 38.9 MCV 87.7 MCH 29.8 MCHC 34.0 RDW 14.0 Plt Count 245 Neut % (Auto) 79.8 H Lymph % (Auto) 13.1 L [place] % (Auto) 6.6 Eos % (Auto) 0.2 L Baso % (Auto) 0.3 Neut # (Auto) 6900 Lymph # (Auto) 1100 [place] # (Auto) 600 Eos # (Auto) 0 Baso # (Auto) 0 SARS-CoV-2 (PCR) Negative Blood Type A Positive Antibody Screen Negative Exam Vital Signs (past 8 hours): Temperature 97.5? blood pressure 139/86 heart rate 93 Narrative Exam Narrative: General: Awake and alert, no acute distress. HEENT: NCAT, EOMI, moist oral mucosa CV: Regular rate and rhythm, no murmurs, rubs or gallops Lungs: CTAB, no wheezes, rales, or rhonchi Abdomen: Soft, nontender; bowel tones active; uterus firm 1 cm below umbilicus Extremities: Warm, no edema Discharge Plan Discharge Plan Patient Disposition: Home Discharge orders & Medications Prescriptions: New docusate sodium [DOK] 100 mg Capsule 100 mg PO DAILY Qty: 30 RF: 0 ibuprofen 600 mg Tablet 600 mg PO Q6HR PRN (Reason: Pain, Mild (1-3)) Qty: 30 RF: 0 Continued cetirizine [Zyrtec] 10 mg tablet 10 mg PO DAILY Qty: 90 RF: 0 prenat.vits,mavis,vyj-wtxs-lhtko Tablet 1 tab PO DAILY RF: 0 Follow up/Referrals: Jacklyn Purdy DO [Primary Care Provider] - 6 Weeks Visit Report/Discharge Packet Stand Alone Forms: Discharge: Care Visit Report Forms: Patient Portal/API, Stroke Signs & Symptoms Discharge Data Primary Care Provider: Jacklyn Purdy Discharges patient from system. Discharge Date/Time: 11/13/20 19:00
[2020-11-13 17:32] LABS: Add Manual Diff / Slide Review NO; Basophils Absolute Auto 0 /uL (0-100); Basophils Percent Auto 0.4 % (0-2); Eosinophils Absolute Auto 0 /uL (0-450); Eosinophils Percent Auto 0.2 % (2-4); Hematocrit 38.2 % (36-46); Hemoglobin 13.2 g/dL (12.0-16.0); Lymphocytes Absolute Auto 1800 /uL (1100-4500); Mean Corpuscular HGB Conc 34.5 % (30-36); Mean Corpuscular Hemoglobin 30.4 PG (26-34); Mean Corpuscular Volume 88.1 fL (80-100); Monocytes Absolute Auto 800 /uL (0-900); Neutrophils Absolute Auto 8100 /uL (1500-7000); Neutrophils Percent Auto 75.4 % (50-75); Platelet Count 243 X10^3/uL (150-400); Red Blood Cell Count 4.34 X10^6/uL (4.0-5.2); Red Cell Distribution Width 14.3 % (11.6-14.8); White Blood Cell Count 10.8 X10^3/uL (4.5-11.0)
[2020-11-13 17:43] LABS: Alanine Aminotransferase 23 IU/L (<35); Albumin 3.7 g/dL (3.5-5.0); Albumin Globulin Ratio 1.2 (1.0-2.8); Alkaline Phosphatase 213 U/L (38-126); Aspartate Aminotransferase 43 IU/L (14-36); BUN Creatinine Ratio 30.6 (6-22); Bilirubin Total 0.3 mg/dL (0.2-1.3); Blood Urea Nitrogen 22 mg/dL (7-17); Calcium 9.2 mg/dL (8.4-10.2); Carbon Dioxide 23 mmol/L (22-32); Chloride 104 mmol/L (98-107); Estimated Glomerular Filt Rate > 60.0 mL/min (>60); Globulin 3.1 g/dL (1.7-4.1); Glucose 107 mg/dL (70-100); HEMOLYSIS < 15 (0-50); Potassium 3.8 mmol/L (3.4-5.1); Sodium 134 mmol/L (137-145); Total Protein 6.8 g/dL (6.3-8.2)
[2020-11-13 18:11] VITALS: BP 125/83; PULSE 92; RESP 16; TEMP 36.4
== END 2020-11-13 19:00 | disposition home or self-care (01) | DRG 807 ==
PROVIDERS: Admitting Provider Family Medicine; PCP Family Medicine; Referring Provider Family Medicine; Visit Provider Family Medicine
DX: O70.0 First degree perineal laceration during delivery (principal); Z37.0 Single live birth; Z3A.39 39 weeks gestation of pregnancy; Z20.822 Contact with and (suspected) exposure to COVID-19
CPT/HCPCS: 36415; 59050; 59400; 80053; 85025; 86850; 86900; 86901; 87635; C9803; G0379; J2590

== ENCOUNTER → 2022-04-26 17:03 | Outpatient (CLI) | payer OTHER, MEDICAID, SELFPAY ==
[2022-04-26 18:17] LABS: Add Manual Diff / Slide Review NO; Basophils Absolute Auto 0 /uL (0-100); Basophils Percent Auto 0.3 % (0-2); Eosinophils Absolute Auto 100 /uL (0-450); Eosinophils Percent Auto 0.9 % (2-4); Hematocrit 35.4 % (36-46); Hemoglobin 12.4 g/dL (12.0-16.0); Lymphocytes Absolute Auto 1600 /uL (1100-4500); Mean Corpuscular HGB Conc 35.1 % (30-36); Mean Corpuscular Hemoglobin 30.5 PG (26-34); Mean Corpuscular Volume 86.6 fL (80-100); Monocytes Absolute Auto 400 /uL (0-900); Monocytes Percent Auto 4.7 % (3-14); Neutrophils Absolute Auto 5700 /uL (1500-7000); Neutrophils Percent Auto 73.1 % (50-75); Platelet Count 311 X10^3/uL (150-400); Red Blood Cell Count 4.08 X10^6/uL (4.0-5.2); Red Cell Distribution Width 12.6 % (11.6-14.8); White Blood Cell Count 7.8 X10^3/uL (4.5-11.0)
[2022-04-26 18:20] LABS: Appearance Urine UA CLEAR; Bilirubin Urine UA NEGATIVE (NEGATIVE); Color Urine UA YELLOW; Glucose Urine UA NEGATIVE (Negative); Ketones Urine UA NEGATIVE (NEGATIVE); Nitrite Urine UA NEGATIVE (Negative); Occult Blood Urine UA TRACE-LYSED (Negative); Protein Urine UA NEGATIVE (Negative); Specific Gravity Urine UA <=1.005 (1.000-1.035); Urobilinogen Urine UA 0.2 E.U./dL (0.2)
[2022-04-26 18:21] LABS: Leukocyte Esterase Urine UA NEGATIVE (NEGATIVE); pH Urine UA 6.5 (4.5-8.0)
[2022-04-28 03:58] LABS: RPR Screen Non Reactive (Non Reactive)
[2022-04-28 04:22] LABS: Varicella IgG Antibody 304 index (Immune >165)
[2022-04-28 21:29] LABS: Hepatitis B Surface Antigen NEGATIVE s/c (NEGATIVE)
[2022-04-28 21:51] LABS: HIV 1 & 2 Ab/Ag 4th Gen Combo NEGATIVE (NEGATIVE); Hep C Virus Ab w/Reflex Quant NEGATIVE s/c (NEGATIVE)
== END ==
PROVIDERS: PCP Family Medicine; Referring Provider Family Medicine; Visit Provider Family Medicine
DX: Z34.81 Encounter for supervision of other normal pregnancy, first trimester (principal)
CPT/HCPCS: 36415; 80055; 81003; 86787; 86803; 86850; 86900; 86901; 87389

== ENCOUNTER → 2022-05-30 16:36 | Outpatient (CLI) | payer OTHER, MEDICAID, SELFPAY ==
[2022-06-01 20:47] LABS: AFP, Serum 87.2 ng/mL (.); Calc Gestational Age Ultrasound (.); Estriol, Free 1.61 ng/mL (.); Inhibin A, Dimeric 222.02 pg/mL (.); Inhibin A, MoM 1.45 (.); Maternal Ethnicity Caucasian (.); Maternal Weight 158 lbs (.); Number of Fetuses No (.); OSBR Risk 1 IN 901 (.); Results Report (.); Test Results *Screen Negative* (.); hCG, MoM 2.18 (.); hCG, Serum 64531 mIU/mL (.)
== END ==
PROVIDERS: PCP Family Medicine; Referring Provider Family Medicine; Visit Provider Family Medicine
DX: Z34.81 Encounter for supervision of other normal pregnancy, first trimester (principal); Z3A.18 18 weeks gestation of pregnancy
CPT/HCPCS: 36415; 82105; 82677; 84702; 86336

== ENCOUNTER → 2022-06-13 14:10 | Outpatient (CLI) | payer OTHER, MEDICAID, SELFPAY ==
--- NOTE | 2022-06-13 14:11 | DI.US.S_ITS ---
PROCEDURE: US OB >= 14 WEEKS FETUS INDICATIONS: ANATOMY OUTSIDE/PRIOR DATING DATA: Last menstrual period (LMP): 01/23/2022 LMP-based estimated date of delivery (JOSÉ MIGUEL): 10/30/2022. First dating scan (date and location): 06/13/2022. Estimated date of delivery (JOSÉ MIGUEL) from first dating scan: 10/28/2022. Working JOSÉ MIGUEL is 10/30/2022. TECHNIQUE: Real-time scanning was performed of the fetus, with image documentation and biometric measurements. COMPARISON: [facility], , OB >= 14 WEEKS FETUS, 07/03/2020, 14:53. FINDINGS: General: A single living intrauterine gestation is present. Presentation: Transverse. Placenta: Placental position is anterior , without previa. Amniotic fluid index: 10.4 cm, normal range is 5-24 cm. Single deepest vertical pocket is 3.0 cm. heart rate: 144 beats per minute. Maternal cervical canal: 3.7 cm long. Normal lower limit is 2.5 cm. biometrics: Biparietal diameter: 20 weeks Head circumference: 19 weeks 4 days Abdominal circumference: 21 weeks 3 days Femur length: 20 weeks 3 days Clinically estimated gestational age: 20 weeks 1 day Composite gestational age from present scan: 20 weeks 3 days Estimated weight and percentile: 380 g; 80 second percentile Anatomic survey: Neuro: Ventricles are non-dilated at less than 10 mm. Cisterna magna is normal at 3-11 mm. Cerebellum is normal in size and morphology. Nuchal skin fold: Normal at less than 6 mm between 14-21 weeks gestational age. Face: Nose and lips, facial profile are normal. Spine: Suboptimally visualized. Heart: Suboptimally visualized. Diaphragm: Diaphragm is intact. Stomach: Left-sided stomach is present. Kidneys: Suboptimally visualized. Cord: 3-vessel cord has orthotopic insertion. Bladder: Normal in size. Extremities: All 4 extremities identified. IMPRESSION: 1. Single living IUP redemonstrated and interval growth is normal. 2. Limited anatomic survey as above. Follow-up recommended. We strive to produce accurate, complete, and clear reports of imaging services. To assist us in improving patient care, this report was composed using standard report templates and voice recognition software. Therefore, it may contain abnormal punctuation, insertions and/or omissions. Occasional wrong-word or sound-alike substitutions may occur. Though we review the report and make efforts to correct it, we do recommend that the report be read carefully in proper context to recognize any text inaccuracies. Dictated by: Elvis ASCENCIO Interpreted: Edwin Alvarez MD on 06/14/2022 at 16:41 Transcribed by: NANCY on 06/14/2022 at 16:43 Approved by: Edwin Alvarez M.D. on 06/14/2022 at 20:34
== END ==
PROVIDERS: PCP Family Medicine; Referring Provider Family Medicine; Visit Provider Family Medicine
DX: Z3A.20 20 weeks gestation of pregnancy; Z36.89 Encounter for other specified antenatal screening
CPT/HCPCS: 76811

== ENCOUNTER → 2022-06-27 14:52 | Outpatient (CLI) | payer OTHER, MEDICAID, SELFPAY ==
--- NOTE | 2022-06-27 14:53 | DI.US.S_ITS ---
PROCEDURE: US OB FOLLOW UP INDICATIONS: Last US unable to view everything OUTSIDE/PRIOR DATING DATA: Last menstrual period (LMP): 01/23/2022 LMP-based estimated date of delivery (JOSÉ MIGUEL): 10/30/2022 First dating scan (date and location): 06/13/2022. Estimated date of delivery (JOSÉ MIGUEL) from first dating scan: 10/28/2022. The calculations are made using the working JOSÉ MIGUEL of 10/30/2022. TECHNIQUE: Real-time scanning was performed of the fetus, with image documentation. Endovaginal scanning: Not indicated. COMPARISON: None. FINDINGS: A single living intrauterine gestation is present. Presentation: Breech Placenta: Placental position is anterior, without previa. Amniotic fluid index: 14.8 cm, normal range is 5-24 cm. Single deepest vertical pocket is 5.1 cm. heart rate: 153 beats per minute. Maternal cervical canal: 3.1 cm long. Normal lower limit is 2.5 cm. Estimated gestational age from initial scan: 22 weeks, 1 day Evaluation of spine is slightly limited however is grossly within normal limits. Four-chamber heart, outflow tracts and bilateral kidneys are visualized and are within normal limits. IMPRESSION: 1. Single live intrauterine gestation with fetus in breech presentation. heart rate is 153 beats per minute. Normal amount of amniotic fluid. 2. Four-chamber heart, outflow tracts and bilateral kidneys are visualized and are within normal limits. spine is suboptimally seen and is grossly within normal limits. Dictated by: Melecio Herndon M.D. on 06/27/2022 at 17:05 Approved by: Melecio Herndon M.D. on 06/27/2022 at 17:08
== END ==
PROVIDERS: PCP Family Medicine; Referring Provider Family Medicine; Visit Provider Family Medicine
DX: Z36.2 Encounter for other antenatal screening follow-up (principal); Z3A.22 22 weeks gestation of pregnancy
CPT/HCPCS: 76816

== ENCOUNTER → 2022-07-25 11:56 | Outpatient (CLI) | payer OTHER, MEDICAID, SELFPAY ==
[2022-07-25 13:17] LABS: Influenza A - CEPHEID Flu A POSITIVE (NEGATIVE); Influenza B - CEPHEID Flu B NEGATIVE (NEGATIVE)
== END ==
PROVIDERS: PCP Family Medicine; Visit Provider Family Medicine
DX: R68.89 Other general symptoms and signs (principal)
CPT/HCPCS: 87502

== ENCOUNTER → 2022-08-19 15:41 | Outpatient (CLI) | payer OTHER, MEDICAID, SELFPAY ==
[2022-08-19 17:14] LABS: Hematocrit 33.2 % (36-46); Hemoglobin 11.8 g/dL (12.0-16.0)
[2022-08-19 17:30] LABS: GTT (PREG) 1 Hour PP 50gm Dose 124 mg/dL (76-139)
== END ==
PROVIDERS: PCP Family Medicine; Referring Provider Family Medicine; Visit Provider Family Medicine
DX: Z34.92 Encounter for supervision of normal pregnancy, unspecified, second trimester (principal); Z3A.26 26 weeks gestation of pregnancy
CPT/HCPCS: 36415; 82950; 85014; 85018

== ENCOUNTER → 2022-10-04 12:18 | Outpatient (CLI) | payer OTHER, MEDICAID, SELFPAY ==
[2022-10-04 15:42] LABS: Influenza A - CEPHEID Flu A NEGATIVE (NEGATIVE); Influenza B - CEPHEID Flu B NEGATIVE (NEGATIVE)
[2022-10-04 15:43] LABS: COVID-19 CEPHEID 4-PLEX PCR Negative (Negative)
[2022-10-05 11:42] LABS: Strep Grp B PCR NEG for Grp B Strep
== END ==
PROVIDERS: PCP Family Medicine; Visit Provider Family Medicine
DX: Z34.93 Encounter for supervision of normal pregnancy, unspecified, third trimester (principal); Z3A.36 36 weeks gestation of pregnancy; J34.89 Other specified disorders of nose and nasal sinuses; R05.9 Cough, unspecified; R09.81 Nasal congestion
CPT/HCPCS: 0240U; 87653

== ENCOUNTER 2022-10-27 01:57 | Inpatient (IN) | payer OTHER, MEDICAID, SELFPAY ==
[2022-10-27 02:45] LABS: Add Manual Diff / Slide Review NO; Basophils Absolute Auto 0 /uL (0-100); Basophils Percent Auto 0.3 % (0-2); Eosinophils Absolute Auto 0 /uL (0-450); Eosinophils Percent Auto 0.3 % (2-4); Hematocrit 38.5 % (36-46); Hemoglobin 13.2 g/dL (12.0-16.0); Lymphocytes Absolute Auto 1600 /uL (1100-4500); Lymphocytes Percent Auto 16.6 % (25-40); Mean Corpuscular HGB Conc 34.3 % (30-36); Mean Corpuscular Hemoglobin 30.4 PG (26-34); Mean Corpuscular Volume 88.4 fL (80-100); Monocytes Absolute Auto 600 /uL (0-900); Neutrophils Absolute Auto 7400 /uL (1500-7000); Neutrophils Percent Auto 76.8 % (50-75); Platelet Count 245 X10^3/uL (150-400); Red Blood Cell Count 4.35 X10^6/uL (4.0-5.2); Red Cell Distribution Width 14.1 % (11.6-14.8); White Blood Cell Count 9.6 X10^3/uL (4.5-11.0)
[2022-10-27 02:57] VITALS: BP 128/84
--- NOTE | 2022-10-27 03:14 | P.HPOB_ITS ---
OB HPI Date/Time Date of admission: 10/27/22 Date Patient Seen: 10/27/22 Time Patient Seen: 03:14 History of Present Condition Chief complaint: MATERNITY JOSÉ MIGUEL Calculator Estimated Delivery Date Method Current WG Current Estimate 10/30/22 Manual 39w 4d Final JOSÉ MIGUEL - JACINTO Other Estimates 10/30/22 LMP (Certain) 39w 4d 11/01/22 Ultrasound #1 39w 2d Estimated Gestational Age (weeks): 39w4d : 2 Para: 1 Narrative: Patient is a 27-year-old at 39 weeks and 4 days gestation. She presents from home with regular, painful contractions since about midnight. At 1:30 a.m. she had a small gush of blood-tinged fluid but has not had further leaking. has been uncomplicated. care: good care, initiated at week # (10), number of visits (13) and pounds weight gain (39) Dating criteria OB: LMP confirmed by 1st trimester US Ultrasounds: normal 1st trimester US and normal mid trimester US Obstetrical complications: none Medical complications OB: none Preadmission Labs Last OB Lab Results: Blood Type A Positive 10/27/22 02:25 Antibody Screen Negative 10/27/22 02:25 Hematocrit 38.5 % (36-46) 10/27/22 02:25 Hemoglobin 13.2 g/dL (12.0-16.0) 10/27/22 02:25 Hepatitis B Surface Antigen Negative s/c (NEGATIVE) 04/26/22 17 :47 Hepatitis C Antibody Negative s/c (NEGATIVE) 04/26/22 17:47 Rubella Antibody 126.0 IU/mL (>15) 04/26/22 17:47 Varicella-Zoster IgG Antibody 304 index (Immune >165) 04/26/22 17:47 Glucose 1 Hour 124 mg/dL (76-139) 08/19/22 16:58 Group B Streptococcus (PCR) Neg for grp b strep 10/04/22 12:18 Genetic Screens: Quad screen: Normal Prior (ies) Past Pregnancies Del. Date GA/Weeks Labor Lgth Wt Sex Route Outcome Anesthesia Place Delv Breastfeed Preg Comp Name 11/12/20 39.2 19 6 lb 12.997 oz Male vaginal live - ful l term [facility] Currently none JT Evaluation Evaluation Baseline heart rate: 130 Variability: Moderate (11-25) monitor accelerations: Present Monitor Decelerations: Absent Contraction Frequency (minutes): 3 Status: Category l Dilation (cm): 4 Effacement (%): 70 station: -3 Non-invasive Membranes Rupture Test: positive [facility] Medical History Allergies (~2000) Chronic back pain (~2011) Family history of breast cancer Foot pain (~2017) Hemorrhoid (~2018) Migraines (~2017) Scoliosis (~1995) Spontaneous vaginal delivery Surgical History Anesthesia H/O eye surgery (~1997) Family History Mother Breast cancer Hypertension Anxiety Depression Grandfather Cancer Smoker Grandmother Stroke Smoker Aneurysm Sister Eligio-Danlos disease Depression Grandfather Hypertension Smoker Family estrangement Grandmother Hypertension Hyperlipidemia Mental health problem Father No known health problems Family/Other Breast cancer Family/Other Cervical cancer Family/Other Seizure Cerebral hemorrhage Social History marital status: unmarried,living together number of children: 1 household members: significant other and children lives independently: Yes housing: other pets and animals: Yes (X 1 dog) education level: high school occupational status: unemployed current occupational exposures/hazards: No special chavo needs: No sexual history: Currently sexually active seatbelt use: always helmet use: Yes water heater temp set < 120 deg: Yes working smoke detector in home: Yes fire extinguisher in home: Yes carbon monox detector in home: Yes firearms in home: No do you feel safe at home: Yes Smoking Status: Never smoker second hand exposure: No alcohol intake: former substance use type: does not use and marijuana during the past year weight has: remained stable well-balanced diet: daily or most days daily servings fruits/ve-4 caffeine: Yes (Aware of 200mg limit) Type(s) of exercise: walking frequency: 5-6 times per week Meds Home Medications and Allergies Home Medications Medication Instructions Recorded Confirmed Type cetirizine 10 mg tablet (Zyrtec) 10 mg PO DAILY #90 tabs 08/26/19 10/27/22 Rx prenat.vits,mavis,ben-wjmi-zwcmo 1 tab PO DAILY 04/20/20 10/27/22 History hydrocortisone 2.5 % topical cream [address] BEDTIME #30 grams 09/20/22 10/25/22 Rx with perineal applicator (Anusol-HC) Allergies Allergy/AdvReac Type Severity Reaction Status Date / Time No Known Drug Allergies Allergy Verified 10/27/22 03:14 OB Exam Vital signs Blood Pressure: 128/84 Pulse Rate: 93 Temperature: 97.7 F HENMT Head: normal to inspection Mouth: oral mucosae normal Eyes General: appearance normal, both eyes and all related structures Resp Effort & Inspection: normal respiratory effort Auscultation: clear to auscultation bilaterally Cardio Rate: regular rate Rhythm: regular rhythm Extremities Lower extremity: Yes normal to inspection; No edema Presentation: vertex Estimated Weight (lbs): 7 Objective Labs 10/27/22 02:25 Labs: Laboratory Results - last 24 hr 10/27/22 02:25 WBC 9.6 RBC 4.35 Hgb 13.2 Hct 38.5 MCV 88.4 MCH 30.4 MCHC 34.3 RDW 14.1 Plt Count 245 Neut % (Auto) 76.8 H Lymph % (Auto) 16.6 L [place] % (Auto) 6.0 Eos % (Auto) 0.3 L Baso % (Auto) 0.3 Neut # (Auto) 7400 H Lymph # (Auto) 1600 [place] # (Auto) 600 Eos # (Auto) 0 Baso # (Auto) 0 Assessment and Plan Assessment and Plan Assessment and Plan narrative: 27-year-old at 39 weeks and 4 days in active labor with questionable rupture of membranes. She was nitrazine positive, AmniSure was not done on admission. She does not continue to leak. Admit for labor Patient desires natural childbirth without medications GBS negative, no indications for prophylaxis Anticipate
--- NOTE | 2022-10-27 06:09 | P.PCNOB_ITS ---
Labor & Delivery Delivery date: 10/27/22 Delivery monitor: external FHT Route of delivery: L&D Laceration Description: None Estimated blood loss (mL): 200 Anesthesia Type: None Narrative: Patient is a 27-year-old who presented in active labor at 39 weeks and 4 days gestation. Labor began at home at approximately 9:45 p.m. and contractions picked up over the next several hours. At 1:30 a.m. she had a small amount of blood-tinged fluid prompting presentation to the center. She labored without anesthesia and was complete at 5:32 a.m.. There was a forebag noted when infant was near . This was ruptured with clear fluid. At 5:47 a.m. she delivered a vigorous female . was vertex and NGA. The cord was wrapped over the left shoulder. was placed on mother's abdomen. Cord was clamped and cut after several minute delay. Apgars were 8 and 9, no resuscitation of the required. Placenta delivered spontaneously at 5:54 a.m. and appeared intact though there was a remaining piece of membrane after delivery of the placenta. Trailing membranes were removed with ring forceps. Placenta was inspected and appeared intact throughout with a three-vessel cord. Fundal massage performed with expression of a small amount of blood only. Fundus was firm below umbilicus. There were no lacerations. Hemostasis assured. EBL 200 mL. Needle and sponge counts were correct. The vagina was inspected and no items were left in situ. Patient was doing well with Zoey, her and partner at bedside. [place] [facility] 1: gender: Female Presentation: vertex Position: Left Occiput Anterior Placenta delivery description: Spontaneous Cord Vessel Description: 3 Vessels and Around Body x1 (Over left shoulder) score (1 min): 8 score (5 min): 9 weight: 7 lb 15.163 oz Plan for aftercare: Routine care
[2022-10-27 07:44] VITALS: BP 128/84; PULSE 93; TEMP 36.5
[2022-10-27] MEDS: IBUPROFEN 600 MG TABLET PO (09:05)
--- NOTE | 2022-10-28 08:40 | PM.OBDS.1 ---
Discharge Providers Provider Date of admission: 10/27/22 01:57 Discharge Date: 10/28/22 Primary care physician: Jacklyn Purdy DO Consults: 10/28/22 06:08 Consult to Office Mail Clerk Routine Comment: Discharge provider: Jacklyn Purdy DO Summary Hospital Course Date Patient Seen: 10/28/22 Time Patient Seen: 07:30 Diagnoses: 39 weeks of Spontaneous vaginal delivery Hospital Course: Patient is a 27-year-old G2 now P2 after uncomplicated spontaneous vaginal delivery at 39 weeks and 4 days gestation. Patient presented in active labor after presumed SROM at home. She utilized natural methods for pain control and went on to deliver a vigorous female infant. There were no lacerations. course uncomplicated. She is ambulating, voiding and passing flatus. Vaginal bleeding is moderate and decreasing. Pain controlled without medication. well without complications in the . Advised patient to call for fevers, severe pain or bleeding through more than a pad an hour. Follow-up for 6 week visit. Peripartum Data Infant Delivery Method: Natural Vaginal Laceration Description: None [place] 1: Gender: Female Disposition of : home Discharge Diagnosis (1) Spontaneous vaginal delivery: Status: Acute Status at Discharge Cognitive/behavioral status at discharge: at baseline, oriented Functional status at discharge: independent ambulation Overall status at discharge: patient is back to baseline Time Spent with Patient Time attestation: Total time spent providing and/or coordinating discharge services: Time spent: Less than 30 minutes Objective Labs 10/27/22 02:25 Exam Vital Signs (past 8 hours): Temperature 98.1? blood pressure 105/75 heart rate 72 Narrative Exam Narrative: General: Awake and alert, no acute distress. HEENT: NCAT, EOMI, moist oral mucosa CV: Regular rate and rhythm, no murmurs, rubs or gallops Lungs: CTAB, no wheezes, rales, or rhonchi Abdomen: Soft, nontender; bowel tones active; uterus firm 1 cm below umbilicus Extremities: Warm, no edema Discharge Plan Discharge Plan Patient Disposition: Home Discharge orders & Medications Prescriptions: Continued hydrocortisone [Anusol-HC] 2.5 % cream with perineal applicator 1 applic MT BEDTIME Qty: 30 0RF cetirizine [Zyrtec] 10 mg tablet 10 mg PO DAILY Qty: 90 0RF prenat.vits,mavis,vgf-[id number] Tablet 1 tab PO DAILY Follow up/Referrals: Jacklyn Purdy DO [Primary Care Provider] - 6 Weeks (Please follow up with Dr. Purdy on December 08 @ 09:15. Please call the clinic with any questions ) Diet/Activity/Treatments Diet: Diet as Tolerated Skin/Wound/Dressing Care Report to your healthcare provider any signs of infection, such as:: chills, fever, night sweats, increased pain, unusual drainage and unusual redness Visit Report/Discharge Packet Stand Alone Forms: Discharge: Care, Patient Portal/API, Stroke Signs & Symptoms Discharge Data Primary Care Provider: Jacklyn Purdy Discharges patient from system. Discharge Date/Time: 10/28/22 11:20
[2022-10-28 09:37] VITALS: BP 140/84; PULSE 72; RESP 17; TEMP 36.9
== END 2022-10-28 11:20 | disposition home or self-care (01) | DRG 560 ==
PROVIDERS: Admitting Provider Family Medicine; PCP Family Medicine; Referring Provider Family Medicine; Visit Provider Family Medicine
DX: O80 Encounter for full-term uncomplicated delivery (principal); Z3A.39 39 weeks gestation of pregnancy; Z37.0 Single live birth
CPT/HCPCS: 36415; 59050; 59409; 85025; 86850; 86900; 86901; G0379

== ENCOUNTER → 2023-06-07 12:36 | Outpatient (CLI) | payer OTHER, MEDICAID, SELFPAY | PROVIDERS: PCP Family Medicine; Visit Provider Nurse Practitioner Family | DX: R30.0 Dysuria (principal) | CPT/HCPCS: 81002; 87077; 87086; 87147 ==

== ENCOUNTER → 2025-07-10 10:41 | Outpatient (CLI) | payer OTHER, SELFPAY ==
--- NOTE | 2025-07-10 10:42 | DI.RAD.S_ITS ---
PROCEDURE: XR SCOLIOSIS SURVEY 6 views total INDICATIONS: scoliosis, upper back pain R>L TECHNIQUE: Frontal and lateral standing views of the spine acquired. Six views total COMPARISON: None. FINDINGS: Incidental note is made of 11 ribs bilaterally for the purposes of numbering. Major curve: convex to the right . [place] vertebra or disc level: T7-8 . End vertebrae: T11 . Ordonez angle: 28.6 . Ordonez angles greater than 10 degrees qualify as scoliosis; those less than 10 degrees are deemed spinal asymmetry and generally do not progress. On follow-up, Ordonez angle changes of 5 degrees or more qualify as significant. Minor curve: convex to the left . End vertebrae: L5 . Ordonez angle: 14.9 . No radiographic evidence of fracture or subluxation. Vertebral body heights within normal limits. Pattern of constipation possible obstipation incidentally noted low abdomen/pelvis. IMPRESSION: 11 ribs bilaterally for the purposes of numbering. Scoliosis as discussed above. Follow-up suggested. If symptoms persist or worsen, or there is high clinical suspicion of thoracic, lumbar abnormality, MRI could be performed. Dictated by: Damion Chris M.D. on 07/10/2025 at 15:22 Approved by: Damion Chris M.D. on 07/10/2025 at 15:29
== END ==
PROVIDERS: PCP Family Medicine; Referring Provider Physical Medicine & Rehabilitation; Visit Provider Physical Medicine & Rehabilitation
DX: M41.9 Scoliosis, unspecified (principal); M54.6 Pain in thoracic spine
CPT/HCPCS: 72082; 99214